=== PATIENT | female | born 1955 | race Caucasian/White ===

== ENCOUNTER 2017-05-20 23:27 | Emergency (ER) | payer OTHER ==
[2017-05-21 00:15] LABS: BASOPHIL 0.5 % (0-2); EOSINOPHIL 2.2 % (0-5); HCT 37.4 % (37.0-47.0); LYMPHOCYTE 44.2 % (15-48); MCH 30.7 pg (25.0-31.0); MCHC 34.8 g/dL (32.0-36.0); MCV 88.4 fL (78.0-100.0); MONOCYTE 7.8 % (0-12); MPV 9.7 fL (6.0-9.5); NEUTROPHIL 45.3 % (41-80); PLT 346 K/uL (150-400); RBC 4.23 M/uL (4.20-5.40)
[2017-05-21 00:26] LABS: INR 1.03 (0.9-1.2); PROTHROMBIN TIME 13.1 SECONDS (11.7-14.0); PTT 26.6 SECONDS (23.2-31.4)
[2017-05-21 00:27] LABS: D-DIMER < 0.27 ug/mLFEU (0.00-0.41)
[2017-05-21 00:32] LABS: ALBUMIN 4.5 g/dL (3.5-5.0); BILIRUBIN - TOTAL 0.2 mg/dL (0.1-1.0); CREATININE 0.7 mg/dL (0.5-1.0); GLOBULIN (CALCULATION) 3.2 g/dL (2.2-4.2); POTASSIUM 3.6 mmol/L (3.5-5.1); TOTAL PROTEIN 7.7 g/dL (6.4-8.3)
[2017-05-21 00:36] LABS: CKMB 2.11 ng/mL (0.97-4.94); MYOGLOBIN < 21 ng/mL (26-65); PRO-BNP 104 pg/mL (0-125); TROPONIN T < 0.010 ng/mL
== END 2017-05-21 01:07 | disposition home or self-care (01) ==
LOC: FER 23:27
PROVIDERS: Emergency Medicine
DX: J20.9 Acute bronchitis, unspecified (principal); M94.0 Chondrocostal junction syndrome [Tietze]; J02.9 Acute pharyngitis, unspecified; R21 Rash and other nonspecific skin eruption; I10 Essential (primary) hypertension; E11.9 Type 2 diabetes mellitus without complications; Z87.891 Personal history of nicotine dependence
CPT/HCPCS: 36415; 71010; 80053; 82550; 82553; 83735; 83874; 83880; 84484; 85025; 85379; 85610; 85730; 93005; J2930